=== PATIENT | male | born 1955 | race Caucasian/White ===

== ENCOUNTER 2017-11-19 12:01 | Observation (INO) ==
[2017-11-19] MEDS ORDERED: Aspirin 81 MG TAB.CHEW PO ONE (12:20)
--- NOTE | 2017-11-19 12:23 | Emergency Department Note ---
Disposition Clinical Impression: Atrial fibrillation with RVR Disposition: Admitted As Inpatient Condition: Fair Referrals: Thao Otero CNP [Primary Care Provider] - Time of Disposition: 12:51 Chest Pain HPI - General Chief Complaint: ED Chest Pain Stated Complaint: SOB/ Mitral valve Prolapse Time Seen by Provider: 11/19/17 12:12 Source: patient Mode of arrival: ambulatory Limitations: no limitations Vital Signs Reviewed: Yes Nursing Notes Reviewed: Yes - History of Present Illness HPI Narrative: 62-year-old who comes in complaining of some intense epigastric discomfort lasts about 10 seconds and he says he feels a little dizzy and short of breath. Patient states he has had this about 4 times in his life he has been told that it was gastritis. Pt complaint: chest pain Onset (ago): Just [employer] Duration: constant Onset: during rest Pain Location: epigastric Severity scale (1-10): 8 Quality: tightness, aching, heaviness Pain Radiation: none Improves with: nothing Worsens with: nothing Treatments prior to arrival chest pain: none - Related Data Home Medications Medication Instructions Recorded Confirmed Advil Cold-Sinus Liqui-Gels 07/30/16 07/30/16 Mucinex 07/30/16 Previous Rx's Medication Instructions Recorded Azithromycin [Zithromax] 250 mg PO DAILY #6 tablet 07/30/16 Benzonatate [Tessalon] 200 mg PO TID PRN #30 capsule 07/30/16 methylPREDNISolone [Medrol] 4 mg PO TAPER #21 tablet 07/30/16 Allergies Allergy/AdvReac Type Severity Reaction Status Date / Time Sulfa (Sulfonamide Allergy Gastrointestinal Verified 07/30/16 11:31 Antibiotics) Upset All systems ED: reviewed and negative except as stated. Constitutional: Denies: fever, chills, weakness, weight change Eyes: Denies: eye pain, eye discharge, vision change ENT ED: Denies: ear pain, throat pain, dental pain, hearing loss, epistaxis, congestion, dysphagia Cardiovascular: Reports: chest pain, palpitations. Denies: dyspnea on exertion , edema, syncope Respiratory: Denies: cough, dyspnea, wheezes, hemoptysis, stridor Gastrointestinal: Denies: abdominal pain, nausea, vomiting, diarrhea, constipation, hematemesis, melena, hematochezia Genitourinary: Denies: urgency, dysuria, frequency, hematuria Musculoskeletal: Denies: back pain, neck pain, arthralgia, myalgia Integumentary: Denies: rash, abrasion, lesions Neurological: Reports: other (Dizziness). Denies: headache, weakness, numbness , paresthesias, confusion, abnormal gait, vertigo Psychiatric: Denies: anxiety, depression, suicidal thoughts, homicidal thoughts , auditory hallucinations, visual hallucinations Endocrine: Denies: fatigue Hematological/Lymphatic: Denies: easy bleeding, easy bruising Allergic/Immunologic: Denies: facial swelling, urticaria Chest Pain PMH - Past Medical History Medical history: Reports: non-contributory - Social History Smoking Status: Current every day smoker Alcohol use: Reports: none Physical Exam - General Limitations: no limitations General appearance: alert, in no apparent distress - Head Head exam: atraumatic, normocephalic, normal inspection - Eye Eye exam: Present: normal appearance, PERRL, EOMI - ENT ENT exam: normal exam, normal oropharynx, mucous membranes moist - Neck Neck exam: Present: normal inspection, full ROM, trachea midline - Chest Chest inspection: Present: normal inspection, symmetric chest wall rise - Respiratory Respiratory exam: Present: normal lung sounds bilaterally - Cardiovascular Cardiovascular exam: Present: tachycardia, irregular rhythm - Abdominal Exam Abdominal exam: Present: soft, Non-Tender. Absent: tenderness, distention, guarding, rebound, rigidity - Extremities Exam Extremities exam: Present: normal inspection, full ROM. Absent: tenderness, pedal edema - Expanded Lower Extremity Exam Neurovascular/Tendon exam: Absent: motor deficit, sensory deficit, tendon deficit Gait: observed and normal - Back Exam Back exam: Present: normal inspection, full ROM. Absent: tenderness - Neurological Exam Neurological exam: Present: alert, oriented X3 - Psychiatric Psychiatric exam: Present: normal affect, normal mood - Skin Skin exam: Present: warm, dry, intact, normal color Course - Reevaluation(s) Reevaluation #1: 62-year-old with paroxysmal atrial fibrillation. Patient asked to converted to sinus Back into A. fib here in the ER. Consultation obtained with cardiology patient will be admitted of cardiology recommended Cardizem and heparin. Time: 14:28 - Consultations Consultation #1: Discussed with , who agrees with the IV Cardizem and heparin. We will consult him and admitted to the hospitalist. Time: 12:49 Consultation #2: Disccused with , admit. Time: 14:27 Vital Signs Temperature 97.6 F 11/19/17 12:04 Pulse Rate 166 11/19/17 12:04 Respiratory Rate 18 11/19/17 12:04 Blood Pressure 139/68 11/19/17 12:04 O2 Sat by Pulse Oximetry 98 11/19/17 12:04 Temperature 97.6 F 11/19/17 12:04 Pulse Rate 166 11/19/17 12:04 Respiratory Rate 18 11/19/17 12:04 Blood Pressure 139/68 11/19/17 12:04 O2 Sat by Pulse Oximetry 98 11/19/17 12:24 Oxygen Delivery Oxygen Delivery Room Air Chest Pain - Lab Data Lab results reviewed: Yes I reviewed the patient's lab results. Result diagrams: 11/19/17 12:21 11/19/17 12:21 Lab Results 11/19/17 11/19/17 11/19/17 Range/Units 12:21 12:21 12:21 WBC 8.2 (4.3-11.1) K/mcL RBC 5.19 (4.19-5.50) M/mcL Hgb 17.3 H (12.9-16.9) g/dL Hct 47.9 (37.5-50.1) % MCV 92.3 (83.0-100.0) fL MCH 33.3 (28.0-33.3) pg MCHC 36.1 H (31.6-35.5) g/dL RDW 12.2 (11.5-14.5) % Plt Count 279 (140-400) K/mcL MPV 9.8 (9.4-12.4) fL Immature Gran % 0.2 (0-4) % Seg Neutrophils % 72.2 % Lymphocytes % 18.6 % Monocytes % 5.9 % Eosinophils % 2.4 % Basophils % 0.7 % Neutrophils # 5.9 (1.6-8.9) K/mcL Lymphocytes # 1.5 (0.6-4.6) K/mcL Monocytes # 0.5 (0.0-1.3) K/mcL Eosinophils # 0.2 (0.0-0.6) K/mcL Basophils # 0.1 (0.0-0.2) K/mcL PT 11.5 (9.4-12.1) Seconds INR 1.1 APTT 30.1 (26.0-36.0) Seconds D-Dimer 281 (0-500) ng/mLFEU Sodium (136-145) mEq/L Potassium (3.5-5.1) mEq/L Chloride (98-107) mEq/L Carbon Dioxide (23-29) mEq/L BUN (8-23) mg/dL Creatinine (0.70-1.30) mg/dL Est GFR ( Amer) (> 60) Est GFR (Non-Af Amer) (> 60) BUN/Creatinine Ratio (6-26) Glucose (70-105) mg/dL Calculated Osmolality (280-300) Calcium (8.6-10.3) mg/dL Magnesium (1.6-2.6) mg/dL Troponin I (< 0.04) ng/mL B-Natriuretic Peptide 178 H (Less than 100) pg/mL TSH (0.340-5.600) mcIU/mL 11/19/17 Range/Units 12:21 WBC (4.3-11.1) K/mcL RBC (4.19-5.50) M/mcL Hgb (12.9-16.9) g/dL Hct (37.5-50.1) % MCV (83.0-100.0) fL MCH (28.0-33.3) pg MCHC (31.6-35.5) g/dL RDW (11.5-14.5) % Plt Count (140-400) K/mcL MPV (9.4-12.4) fL Immature Gran % (0-4) % Seg Neutrophils % % Lymphocytes % % Monocytes % % Eosinophils % % Basophils % % Neutrophils # (1.6-8.9) K/mcL Lymphocytes # (0.6-4.6) K/mcL Monocytes # (0.0-1.3) K/mcL Eosinophils # (0.0-0.6) K/mcL Basophils # (0.0-0.2) K/mcL PT (9.4-12.1) Seconds INR APTT (26.0-36.0) Seconds D-Dimer (0-500) ng/mLFEU Sodium 140 (136-145) mEq/L Potassium 3.4 L (3.5-5.1) mEq/L Chloride 104 (98-107) mEq/L Carbon Dioxide 24 (23-29) mEq/L BUN 16 (8-23) mg/dL Creatinine 1.04 (0.70-1.30) mg/dL Est GFR ( Amer) > 60 (> 60) Est GFR (Non-Af Amer) > 60 (> 60) BUN/Creatinine Ratio 15 (6-26) Glucose 95 (70-105) mg/dL Calculated Osmolality 291 (280-300) Calcium 9.8 (8.6-10.3) mg/dL Magnesium 2.0 (1.6-2.6) mg/dL Troponin I < 0.03 (< 0.04) ng/mL B-Natriuretic Peptide (Less than 100) pg/mL TSH 1.796 (0.340-5.600) mcIU/mL - Radiology Data Radiology results reviewed: Yes I reviewed the patient's radiology results. - EKG Data EKG attestation: Yes I reviewed and interpreted this EKG. Rate: tachycardia Rhythm: A.Fib [place]/QRS: normal Interpretation: other (A. fib RVR) Critical Care Time Critical Care Time: Yes Total Critical Care Time: 30 Attestation: The high probability of a clinically significant, sudden or life threatening deterioration of the [cardiovascular] system(s) required my full and direct attention, intervention and personal management. The aggregate critical care time was [30] minutes. This time is in addition to time spent performing reported procedures but includes the following: [x] Data Review and interpretation [x] Patient assessment and monitoring of vital signs [x] Documentation [x] Medication orders and management
[2017-11-19 12:40] LABS: Basophils # 0.1 K/mcL (0.0-0.2); Basophils % 0.7 %; Eosinophils # 0.2 K/mcL (0.0-0.6); Eosinophils % 2.4 %; Hematocrit 47.9 % (37.5-50.1); Hemoglobin 17.3 g/dL (12.9-16.9); Immature Granulocytes % 0.2 % (0-4); Lymphocytes # 1.5 K/mcL (0.6-4.6); Lymphocytes % 18.6 %; Mean Corpuscular HGB Conc 36.1 g/dL (31.6-35.5); Mean Corpuscular Hemoglobin 33.3 pg (28.0-33.3); Mean Corpuscular Volume 92.3 fL (83.0-100.0); Mean Platelet Volume 9.8 fL (9.4-12.4); Monocytes # 0.5 K/mcL (0.0-1.3); Monocytes % 5.9 %; Neutrophils # 5.9 K/mcL (1.6-8.9); Platelet Count 279 K/mcL (140-400); Red Blood Count 5.19 M/mcL (4.19-5.50); Red Cell Distribution Width 12.2 % (11.5-14.5); Segmented Neutrophils % 72.2 %
[2017-11-19] MEDS ORDERED: *HR* Heparin 5,000 UNIT/ML VIAL IVP ONE (12:48)
[2017-11-19] MEDS ORDERED: *HR* Heparin 5,000 UNIT/ML VIAL IVP PRN ×2 (12:48)
[2017-11-19] MEDS ORDERED: Heparin 25,000 UNIT/500 ML D5W 25,000 UNIT/500 ML BAG IVC SCH (13:00)
[2017-11-19 13:09] LABS: BUN/Creatinine Ratio 15 (6-26); Blood Urea Nitrogen 16 mg/dL (8-23); Calcium 9.8 mg/dL (8.6-10.3); Carbon Dioxide 24 mEq/L (23-29); Chloride 104 mEq/L (98-107); Glucose 95 mg/dL (70-105); Osmolality,Calculated 291 (280-300); Potassium 3.4 mEq/L (3.5-5.1); Sodium 140 mEq/L (136-145); Troponin I < 0.03 ng/mL (< 0.04); eGFR For African Americans > 60 (> 60); eGFR For Non-African Americans > 60 (> 60)
[2017-11-19 13:23] LABS: INR 1.1; Prothrombin Time 11.5 Seconds (9.4-12.1)
[2017-11-19 13:25] LABS: Activated Partial Thrombo Time 30.1 Seconds (26.0-36.0)
[2017-11-19] MEDS ORDERED: Acetaminophen 325 MG TABLET PO PRN (13:42)
[2017-11-19] MEDS ORDERED: Naloxone 0.4 MG/ML INJ IVP PRN ×2 (13:42)
[2017-11-19] MEDS ORDERED: traMADol 50 MG TABLET PO PRN (13:42)
--- NOTE | 2017-11-19 13:50 | Internal Med History&Physical ---
<Saloni Bustamante - Last Filed: 11/19/17 13:45> Date of Encounter: 11/19/17 Time of Encounter: 13:45 Internal Medicine - H&P: HPI Admitted From: Home Plans for Post Hospital Care: Home History of present illness: Mr. Valadez is a 62 year old male with past medical history of mitral prolapse presented with dizziness and palpitation. He was in his usual health state until this morning when he suddenly feels some epigastric pain with associated dizziness and palpitation. He had similar symptoms in the past and was told he had gastritis. He also reported chest tightness and mild shortness of breath, which prompted him to seek medical attention. At the ED, telemetry revealed atrial fibrillation with rapid ventricular response, heart rate around 150-160, blood pressure was stable at 130/80. He was started on Cardizem drip after received bolus Cardizem, he also was started on heparin drip. Cardiology was consulted. He will be admitted as inpatient for further management. Past Med Surg Social Fam HX - Past Medical History Medical history: non-contributory - Social History Smoking Status: Current every day smoker Smokeless Tobacco Status: No Alcohol use: none Internal Medicine - H&P: Meds Diclofenac Sodium [Voltaren] 75 mg PO BID 11/19/17 [History] Aspirin 81 mg PO DAILY 14 Days #14 tab.chew 11/20/17 [Rx] Diltiazem CD (24hr) [Cardizem CD] 120 mg PO DAILY 14 Days #14 cap.er.24h [Rx] 3 Allergy/AdvReac Type Severity Reaction Status Date / Time Sulfa (Sulfonamide Allergy Gastrointestinal Verified 07/30/16 11:31 Antibiotics) Upset All Systems PM: A 10-system review of systems was performed and is negative for pertinent findings except as documented above in the HPI. Review of systems: REVIEW OF SYSTEMS: CONSTITUTIONAL: No weight loss, fever, chills, weakness or fatigue. HEENT: Eyes: No visual loss, blurred vision, double vision or yellow sclerae. Ears, Nose, Throat: No hearing loss, sneezing, congestion, runny nose or sore throat. SKIN: No rash or itching. CARDIOVASCULAR: see HPI. RESPIRATORY: see HPI. GASTROINTESTINAL: No anorexia, nausea, vomiting or diarrhea. No abdominal pain or blood. GENITOURINARY: No dysuria, urgency, or frequency. NEUROLOGICAL: No headache, dizziness, syncope, paralysis, ataxia, numbness or tingling in the extremities. No change in bowel or bladder control. MUSCULOSKELETAL: No muscle, back pain, joint pain or stiffness. HEMATOLOGIC: No anemia, bleeding or bruising. LYMPHATICS: No enlarged nodes. No history of splenectomy. PSYCHIATRIC: No history of depression or anxiety. ENDOCRINOLOGIC: No reports of sweating, cold or heat intolerance. No polyuria or polydipsia. - Constitutional Vitals: Temp Pulse Resp BP Pulse Ox 97.6 F 166 18 139/68 98 11/19/17 12:04 11/19/17 12:04 11/19/17 12:04 11/19/17 12:04 11/19/17 12:24 General appearance: Present: A&O X 3 Exam: GENERAL APPEARANCE: The patient is alert, oriented and in no acute distress. HEENT: Head is normocephalic. The sinuses are nontender. Pupils are equal and reactive. The nares are patent. Oropharynx clear without lesions. NECK: Supple without lymphadenopathy. HEART: Regular rate and rhythm. LUNGS: No crackles or wheezes are heard. ABDOMEN: Soft, nontender, nondistended with good bowel sounds heard. Inguinal area is normal. EXTREMITIES: Without cyanosis, clubbing or edema. NEUROLOGICAL: Gross nonfocal. SKIN: Warm and dry without any rash. Internal Med - H&P Results - Labs CBC & Chem 7: 11/19/17 12:21 11/19/17 12:21 Labs: Short CBC 11/19/17 Range/Units 12:21 WBC 8.2 (4.3-11.1) K/mcL Hgb 17.3 H (12.9-16.9) g/dL Hct 47.9 (37.5-50.1) % Plt Count 279 (140-400) K/mcL Neutrophils # 5.9 (1.6-8.9) K/mcL BMP 11/19/17 12:21 Sodium 140 Potassium 3.4 L Chloride 104 Carbon Dioxide 24 BUN 16 Creatinine 1.04 Glucose 95 Calcium 9.8 Cardiac Enzymes 11/19/17 Range/Units 12:21 Troponin I < 0.03 (< 0.04) ng/mL - Assessment and plan (1) Atrial fibrillation with RVR Status: Acute Assessment and plan: 62-year-old male with past medical history of mitral prolapse presented with acute onset of atrial fibrillation and rapid ventricular response. - started on Cardizem and heparin drip at ED, continue Cardizem and heparin. - discussed with the patient about possible long-term anticoagulation. He prefers not taking Coumadin rather than normal oral anticoagulation agents such as Eliquis. - Cardiology consulted, awaiting input. - TSH pending, echocardiogram ordered, will cycle troponin. Continue telemetry monitoring. (2) Mitral prolapse Status: Acute Assessment and plan: - Echocardiogram ordered, cardiology following. - Time Spent With Patient Total time spent is greater than 50% in coordination of care (as documented) at patient's floor/unit and/or counseling patient: Greater than 35 minutes <Aram Blandon - Last Filed: 11/20/17 19:39> Date of Encounter: 11/20/17 Internal Medicine - H&P: HPI History of present illness: Mr. Valadez is a 62 year old male Past Med Surg Social Fam HX - Family History Father Living Status: Age at : 86 Cause of : cardiac event Hx Family Cardiac Disorders: Yes Hx Family Respiratory Disorders: Yes (COPD) Hx Family Cancer: Yes (melanoma) Hx Family Endocrine Disorder: Yes (DM) Hx Family Medical Disorders: Yes Mother Living Status: Age at : 84 Cause of : dementia Hx Family Cardiac Disorders: No Hx Family Respiratory Disorders: No Hx Family Medical Disorders: Yes All Systems PM: A 10-system review of systems was performed and is negative for pertinent findings except as documented above in the HPI. - Constitutional Vitals: Temp Pulse Resp BP Pulse Ox 98.1 F 74 17 120/76 96 11/20/17 16:14 11/20/17 16:14 11/20/17 16:14 11/20/17 16:14 11/20/17 16:14 Internal Med - H&P Results - Labs CBC & Chem 7: 11/20/17 00:36 11/20/17 00:36 Labs: Short CBC 11/20/17 Range/Units 00:36 WBC 6.0 (4.3-11.1) K/mcL Hgb 14.0 D (12.9-16.9) g/dL Hct 39.9 (37.5-50.1) % Plt Count 199 (140-400) K/mcL Neutrophils # 3.3 (1.6-8.9) K/mcL BMP 11/20/17 00:36 Sodium 140 Potassium 3.1 L Chloride 106 Carbon Dioxide 28 BUN 17 Creatinine 0.89 Glucose 132 H Calcium 8.6 Cardiac Enzymes 11/20/17 Range/Units 00:36 Troponin I < 0.03 (< 0.04) ng/mL - Attending Attestation I examined this patient and my medical decision-making was reviewed with the Resident Physician. I agree with the documented findings, disposition and treatment plan as described except to the extent set forth below. agree with above - Assessment and plan (1) Atrial fibrillation with RVR Status: Resolved (2) Mitral prolapse Status: Ruled-out - Time Spent With Patient Total time spent is greater than 50% in coordination of care (as documented) at patient's floor/unit and/or counseling patient:
[2017-11-19 13:59] LABS: Thyroid Stimulating Hormone 1.796 mcIU/mL (0.340-5.600)
[2017-11-19 21:28] LABS: Activated Partial Thrombo Time 124.1 Seconds (26.0-36.0)
[2017-11-19 22:14] LABS: Heparin anti-factor XA UFH 0.64 IU/mL (0.30-0.70)
[2017-11-20 01:07] LABS: Basophils # 0.1 K/mcL (0.0-0.2); Eosinophils # 0.3 K/mcL (0.0-0.6); Hematocrit 39.9 % (37.5-50.1); Immature Granulocytes % 0.2 % (0-4); Lymphocytes # 1.7 K/mcL (0.6-4.6); Mean Corpuscular HGB Conc 35.1 g/dL (31.6-35.5); Mean Corpuscular Hemoglobin 32.5 pg (28.0-33.3); Mean Corpuscular Volume 92.6 fL (83.0-100.0); Mean Platelet Volume 9.8 fL (9.4-12.4); Monocytes # 0.6 K/mcL (0.0-1.3); Monocytes % 9.2 %; Neutrophils # 3.3 K/mcL (1.6-8.9); Platelet Count 199 K/mcL (140-400); Red Blood Count 4.31 M/mcL (4.19-5.50); Red Cell Distribution Width 12.5 % (11.5-14.5); Segmented Neutrophils % 55.6 %
[2017-11-20 01:30] LABS: BUN/Creatinine Ratio 19 (6-26); Blood Urea Nitrogen 17 mg/dL (8-23); Calcium 8.6 mg/dL (8.6-10.3); Carbon Dioxide 28 mEq/L (23-29); Chloride 106 mEq/L (98-107); Chol/HDL Ratio 5.3 (0-4.9); Cholesterol 169 mg/dL (< 200); Glucose 132 mg/dL (70-105); HDL Cholesterol 32 mg/dL (40-59); LDL Cholesterol,Calculated 101 mg/dL (0-99); Osmolality,Calculated 293 (280-300); Potassium 3.1 mEq/L (3.5-5.1); Sodium 140 mEq/L (136-145); Triglycerides 179 mg/dL (< 150); eGFR For African Americans > 60 (> 60); eGFR For Non-African Americans > 60 (> 60)
--- NOTE | 2017-11-20 09:09 | Cardiology Consult Note ---
Addendum entered and electronically signed by Jarek Siegel CNP 11/20/17 14:17 : TTE completed and shows preserved EF. There was mild mitral regurgitation. No MVP seen. Remains NSR. Start oral cardizem and asa. Out-pt f/u will be scheduled in 2-3 weeks with [facility]. Please call with questions. Original Note: Date of Encounter: 11/20/17 Time of Encounter: 08:00 Assessment and Plan (1) Atrial fibrillation with RVR Current Visit: Yes Status: Acute Presents with atrial fibrillation with RVR. EKG shows atrial fibrillation with RVR, HR 154. Likely h/o PAF with symptoms over last several years. Converted to NSR on cardizem gtt. If his TT shows preserved function will start oral cardizem. CHADS VASc=0. Recommend asa 81 mg daily. Reports diagnosis of mitral valve prolapse at age 19. No recent cardiac work- up. TTE pending. Discussion w patient/family: The assessment and plan as outlined above was discussed with the patient and/or family members who expressed understanding and agreement. All questions were answered. Thank you for involving us in the care of your patient. Please call with any questions. History of Present Illness Consult date: 11/20/17 Requesting physician: Saloni Bustamante Consult reason: atrial fibrillation with RVR Chief complaint: dizziness, SOB History of present illness: Mr. Valadez is a 62 year old male who presented with the c/o dizziness and SOB. He was found to have atrial fibrillation with RVR. He c/o similar symptoms in the past that would only last a few minutes at a time. Yesterday his symptoms did not go away. He reports increased stress with his work. He reports history of mitral valve prolapse diagnosed when he was 19 years old. He denies recent cardiac work-up. He was started on IV cardizem and converted to NSR. Past Med Surg Social Fam HX - Past Medical History Medical history: non-contributory, other (h/o MVP) - Social History Smoking Status: Current every day smoker Packs per day: 1 Smokeless Tobacco Status: No Alcohol use: none Drug use: none - Family History Father Living Status: Age at : 86 Cause of : cardiac event Hx Family Cardiac Disorders: Yes Hx Family Respiratory Disorders: Yes (COPD) Hx Family Cancer: Yes (melanoma) Hx Family Endocrine Disorder: Yes (DM) Hx Family Medical Disorders: Yes Mother Living Status: Age at : 84 Cause of : dementia Hx Family Cardiac Disorders: No Hx Family Respiratory Disorders: No Hx Family Medical Disorders: Yes Medications and Allergies Diclofenac Sodium [Voltaren] 75 mg PO BID 11/19/17 [History] 3 Allergy/AdvReac Type Severity Reaction Status Date / Time Sulfa (Sulfonamide Allergy Gastrointestinal Verified 07/30/16 11:31 Antibiotics) Upset All Systems Review: The remainder of the systems were reviewed and are negative Physical Examination Vital Signs, Last 4 Hours Temp Pulse Resp BP Pulse Ox 11/20/17 07:46 98.3 F 73 16 101/62 93 General: Conversant, No Apparent Distress HEENT: Atraumatic, Normocephaly, Mucus Membranes Moist Neck: No JVD, Normal carotid pulses Cardiac: Reg Rate and Rhythm, Normal S1 and S2, No Murmur Lungs: Normal Breath Sounds, No Wheeze, Rales, Rhonchi Neuro: Alert and responsive, No focal deficits noted Abdomen: Soft, Non-Tender Skin: No rashes noted on visualized skin Musculoskeletal: No Chest Wall Tenderness Extremities: No Clubbing, No Cyanosis, No Edema, Normal Pulses Results 11/20/17 00:36 11/20/17 00:36 Lab Results 11/19/17 11/19/17 11/20/17 18:19 20:23 00:36 WBC Hgb Hct Plt Count APTT 124.1 H* D Sodium Potassium Chloride Carbon Dioxide BUN Creatinine Glucose Calcium Troponin I < 0.03 < 0.03 11/20/17 11/20/17 11/20/17 00:36 00:36 05:03 WBC 6.0 Hgb 14.0 D Hct 39.9 Plt Count 199 APTT 53.7 H D Sodium 140 Potassium 3.1 L Chloride 106 Carbon Dioxide 28 BUN 17 Creatinine 0.89 Glucose 132 H Calcium 8.6 Troponin I - Imaging and Cardiology Echo: pending - EKG Interpretation EKG results cardiology: personally reviewed Consult Discharge Plan - Plan
[2017-11-20] MEDS ORDERED: Diltiazem CD (24hr) 120 MG CAPSULE PO SCH (14:15)
[2017-11-20] MEDS ORDERED: Aspirin 81 MG TAB.CHEW PO SCH (14:15)
[2017-11-20 16:19] VITALS: BP 120/76
--- NOTE | 2017-11-20 16:29 | Electrocardiograph Report ---
[address] [place], [place] [address] Test Date: 2017-11-19 Pat Name: Rick Valadez Department: 104 Room: 2A13 Gender: M Behavioral Psychologist: : 1955 Requested By: Caty See Order Number: [id number] Reading MD: Harini Mccann Measurements Intervals [place] Rate: 166 P: DC: 0 QRS: -75 QRSD: 107 T: 94 QT: 272 QTc: 363 Interpretive Statements PROBABLE ATRIAL FIBRILLATION WITH RAPID VENTRICULAR RESPONSE INCOMPLETE RIGHT BUNDLE BRANCH BLOCK LEFT ANTERIOR FASCICULAR BLOCK ST DEVIATION AND MODERATE T-WAVE ABNORMALITY, CONSIDER LATERAL ISCHEMIA WARNING: DATA QUALITY MAY AFFECT INTERPRETATION Electronically Signed On 11-20-2017 16:27:45 EDT by Harini Mccann
--- NOTE | 2017-11-20 16:30 | Electrocardiograph Report ---
[place] [id number] Test Date: 2017-11-19 Pat Name: Rick Valadez Department: 104 Room: 2A13 Gender: M Assisted Living Administrator: [facility] : 1955 Requested By: Shawn Oliveros Order Number: [id number] Reading MD: Harini Mccann Measurements Intervals [place] Rate: 154 P: CT: 0 QRS: -64 QRSD: 110 T: 82 QT: 297 QTc: 384 Interpretive Statements ATRIAL FIBRILLATION WITH RAPID VENTRICULAR RESPONSE LEFT ANTERIOR FASCICULAR BLOCK INCOMPLETE RIGHT BUNDLE BRANCH BLOCK [90+ ms QRS DURATION, TERMINAL R IN V1/V2, 40+ ms S IN I/aVL/V4/V5/V6] NONSPECIFIC ST & T-WAVE ABNORMALITY Electronically Signed On 11-20-2017 16:28:55 EDT by Harini Mccann
--- NOTE | 2017-11-20 16:51 | Discharge Summary ---
- NOTES TO OUTPATIENT PROVIDER Notes to Outpatient Provider: Follow up with PCP in 2-3 days after discharge. Recheck BMP at that time (hypokalemia). Discuss/consider starting statin. Follow up with cardiology as directed. Orders not resulted at time of discharge: Pending orders 11/20/17 17:45 PTT [Activated Partial Thrombo Time] [COAG] Timed Date of Encounter: 11/20/17 Time of Encounter: 16:49 - Discharge Diagnosis (1) Atrial fibrillation with RVR Priority: Primary Status: Resolved (2) Mitral prolapse Priority: Secondary Status: Ruled-out Hospital course: Mr. Valadez is a 62 year old male admitted for atrial fibrillation with rapid ventricular response. Patient was admitted for observation to general medical floor with telemetry. He was started on cardizem and heparin drips. He subsequently converted to normal sinus rhythm and has remained as such for rest of admission. Cardiac enzymes trended negative x 3. TSH was WNL. Cardiology was consulted. ECHO showed preserved EF with mild mitral regurgitation without mitral valve prolapse. Cardiology recommended PO cardizem and aspirin 81 mg. He will follow up with PCP in 2-3 days after discharge. He will follow up with cardiology in 2-3 weeks as directed. Patient has met maximum benefit of this hospitalization and will be discharged home in stable condition. Discharge discussed with: patient, family, nurse, other (Pharmacist) - Time Spent with Patient Total time spent providing and/or coordinating discharge services: Less than 30 minutes - Discharge Medications Prescriptions: Aspirin 81 mg PO DAILY 14 Days #14 tab.chew Diltiazem CD (24hr) [Cardizem CD] 120 mg PO DAILY 14 Days #14 cap.er.24h Home Medications: Diclofenac Sodium [Voltaren] 75 mg PO BID 11/19/17 [History] Aspirin 81 mg PO DAILY 14 Days #14 tab.chew 11/20/17 [Rx] Diltiazem CD (24hr) [Cardizem CD] 120 mg PO DAILY 14 Days #14 cap.er.24h [Rx] Allergies/Adverse Reactions: 3 Allergy/AdvReac Type Severity Reaction Status Date / Time Sulfa (Sulfonamide Allergy Gastrointestinal Verified 07/30/16 11:31 Antibiotics) Upset Date of admission: 11/19/17 14:37 Primary care physician: Thao Otero, Consults: Cardiology Discharging clinician: Lavelle Valencia Anticipated date of discharge: 11/20/17 - Constitutional Vitals: Temp Pulse Resp BP Pulse Ox 98.1 F 74 17 120/76 96 11/20/17 16:14 11/20/17 16:14 11/20/17 16:14 11/20/17 16:14 11/20/17 16:14 General appearance: Present: cooperative, A&O X 3, pleasant, no acute distress, answers questions appropriately - Respiratory Respiratory exam: Present: CTAB. Absent: accessory muscle use, rales, rhonchi, wheezes Additional comments: Normal WOB - Cardiovascular Cardiovascular exam: Present: RRR, +S1, +S2. Absent: diastolic murmur, gallop, rubs, systolic murmur Additional comments: No BLE edema - GI/Abdominal GI/Abdominal exam: Present: normal bowel sounds, soft. Absent: distended, hepatomegaly, mass, splenomegaly, tenderness - Psychiatric Psychiatric exam: Present: normal affect, normal mood. Absent: agitated, anxious, depressed - Skin Skin exam: Present: dry, intact, warm. Absent: cyanosis, rash - Patient Status Disposition: Home, Self-Care Condition: Good Functional capacity at discharge: independent ambulation Overall status at discharge: patient is back to baseline - Discharge Instructions Instructions: Atrial Fibrillation (DC) Follow Up With: [facility] [Provider Group] (Office will call you with a follow up appointment in 2-3 weeks. Thank you!) Thao Otero, [employer] [Primary Care Provider] - 11/26/17 1:30 pm Forms: ED Satisfaction Letter Additional Instructions: Follow up with PCP in 2-3 days after discharge. Recheck BMP at that time ( hypokalemia). Discuss/consider starting statin. Follow up with cardiology as directed. - Diet and Activity Activity: resume usual activities as tolerated Diet: low fat, low cholesterol, low salt diet, other (Cardiac Diet)
== END 2017-11-20 17:31 | disposition home or self-care (01) ==
LOC: 2ANU 12:01 → EMEROO 12:01 → 2ANU 15:20
PROVIDERS: ADMIT Internal Medicine; ATTEND Internal Medicine